=== PATIENT | female | born 1965 | race Two or more races ===

== ENCOUNTER 2020-05-28 22:31 | Inpatient (IN) | payer SELFPAY ==
[~2020-05-28] VITALS: Ht 167.6 cm; Wt 65.6 kg
[2020-05-29] MEDS ORDERED: DexAMETHasone SOD PHOS 10MG/1ML VIAL INJ IV ONE (02:00)
[2020-05-29] MEDS ORDERED: levoFLOXacin 750MG 150 ML IV ONE (02:15)
[2020-05-29 02:39] LABS: Basophils # (auto) 0 10 ^3/uL (0-0.2); Basophils % (auto) 0.2 % (0.0-2.0); Eosinophils # (auto) 0 10 ^3/uL (0-0.8); Eosinophils % (auto) 0.8 % (0.0-7.0); Hematocrit 39.5 % (36.0-46.0); Hemoglobin 13.2 g/dL (12.2-16.2); Lymphocytes # (auto) 0.5 10 ^3/uL (0.4-5.4); Lymphocytes % (auto) 7.2 % (10.0-50.0); Mean Corpuscular Hemoglobin 29.2 pg (28.0-32.0); Mean Corpuscular Hgb Conc. 33.5 g/dL (32.0-36.0); Mean Corpuscular Volume 87.2 fL (80.0-100.0); Monocytes # (auto) 0.7 10 ^3/uL (0-1.3); Monocytes % (auto) 10.6 % (0.0-12.0); Neutrophils # (auto) 5.2 10 ^3/uL (1.6-8.6); Neutrophils % (auto) 81.2 % (37.0-80.0); Platelet Count (auto) 311 10^3/uL (140-450); Red Blood Cells 4.53 10^6/uL (4.0-5.20); Red Cell Distribution Width 13.3 % (11.8-14.3); White Blood Cell 6.4 10^3/uL (4.4-10.8)
[2020-05-29 03:02] LABS: Alanine Aminotransferase 20 U/L (13-56); Albumin 2.4 g/dL (3.4-5.0); Anion Gap 10 (5-15); Aspartate Aminotransferase 30 U/L (15-37); BUN/Creatinine Ratio 22.2; Blood Urea Nitrogen 10 mg/dL (7-18); Calcium 7.9 mg/dL (8.5-10.1); Carbon Dioxide 25 mmol/L (21-32); Chloride 98 mmol/L (98-107); GFR African American 187 mL/min; GFR Non-African American 155 mL/min; Glucose 108 mg/dL (74-106); Magnesium 2.5 mg/dL (1.6-2.6); Potassium 3.3 mmol/L (3.5-5.1); Sodium 133 mmol/L (136-145)
[2020-05-29 03:12] LABS: INR 1.08 (0.9-1.15); Partial Thromboplastin Time 27.3 sec (23.0-31.2)
[2020-05-29 03:14] LABS: Alkaline Phosphatase 58 U/L (45-117); Bilirubin, Total 0.6 mg/dL (0.2-1.0); Lactate Dehydrogenase 412 U/L (84-246); Total Protein 7.4 g/dL (6.4-8.2)
[2020-05-29] MEDS ORDERED: IOHEXOL 350 MG/ML 100ML IJ ONE (07:32)
[2020-05-29] MEDS ORDERED: ACETAMINOPHEN 325 MG TAB PO PRN (21:00)
[2020-05-29] MEDS ORDERED: NITROGLYCERIN 0.4 MG SL TAB SL PRN (21:00)
[2020-05-29] MEDS ORDERED: MORPHINE SULF INJ 2 MG/ML SYRINGE 1ML IV PRN (21:00)
[2020-05-29] MEDS ORDERED: ONDANSETRON HCL 4 MG/2 ML VIAL IV PRN (21:00)
[2020-05-29] MEDS ORDERED: TEMAZEPAM 15 MG CAP PO PRN (21:00)
[2020-05-29] MEDS: ALBUTEROL SULF HFA 90MCG INH 200DOSE IN SCH (22:00)
[2020-05-29] MEDS: FAMOTIDINE 20 MG TAB PO SCH (23:19)
[2020-05-29] MEDS: DOXYCYCLINE 100MG/250ML 250 ML IV SCH (23:19)
[2020-05-29] MEDS: ASCORBIC ACID 500 MG TAB PO SCH (23:19)
[2020-05-30] VITALS: BP 121/79
[2020-05-30 05:40] LABS: Basophils # (auto) 0 10 ^3/uL (0-0.2); Basophils % (auto) 0.1 % (0.0-2.0); Eosinophils # (auto) 0 10 ^3/uL (0-0.8); Hemoglobin 13.6 g/dL (12.2-16.2); Lymphocytes # (auto) 0.3 10 ^3/uL (0.4-5.4); Lymphocytes % (auto) 5.7 % (10.0-50.0); Mean Corpuscular Hemoglobin 29.6 pg (28.0-32.0); Mean Corpuscular Hgb Conc. 33.9 g/dL (32.0-36.0); Mean Corpuscular Volume 87.2 fL (80.0-100.0); Monocytes # (auto) 0.9 10 ^3/uL (0-1.3); Monocytes % (auto) 15.4 % (0.0-12.0); Neutrophils # (auto) 4.5 10 ^3/uL (1.6-8.6); Neutrophils % (auto) 78.8 % (37.0-80.0); Nucleated Red Blood Cells % 0.1 %; Platelet Count (auto) 446 10^3/uL (140-450); Red Blood Cells 4.58 10^6/uL (4.0-5.20); Red Cell Distribution Width 13.6 % (11.8-14.3); White Blood Cell 5.7 10^3/uL (4.4-10.8)
[2020-05-30 05:54] LABS: Potassium 3.4 mmol/L (3.5-5.1)
[2020-05-30] MEDS: ALBUTEROL SULF HFA 90MCG INH 200DOSE IN SCH ×3 (06:00→21:41)
[2020-05-30 06:06] LABS: Albumin 2.4 g/dL (3.4-5.0); BUN/Creatinine Ratio 43.2; Bilirubin, Total 0.5 mg/dL (0.2-1.0); Calcium 8.2 mg/dL (8.5-10.1); Total Protein 7.2 g/dL (6.4-8.2)
--- NOTE | 2020-05-30 07:24 | NUR ---
Respiratory note: PT SEEN, PT RESTING AT THIS TIME NO RESP DISTRESS NOTED. HR 81, RR 26, SPO2 97% ON 4L N/C. TITRATED FIO2 TO 2L. PT MAINTAINED SPO2. NO MDI'S AT BEDSIDE. WILL CALL PHARMACY
[2020-05-30] MEDS ORDERED: ZINC SULFATE 220mg CAP or TAB PO SCH (10:00)
[2020-05-30] MEDS: ASCORBIC ACID 1,000 MG TAB PO SCH (10:39)
[2020-05-30] MEDS: ENOXAPARIN SOD 40 MG/0.4 ML SYRINGE SC SCH (10:39)
[2020-05-30] MEDS: ASCORBIC ACID 500 MG TAB PO SCH (10:39)
[2020-05-30] MEDS: CHOLECALCIFEROL (VITD3) 2,000 UNIT CAP PO SCH (10:39)
[2020-05-30] MEDS: FAMOTIDINE 20 MG TAB PO SCH ×2 (10:39→21:54)
[2020-05-30] MEDS: DexAMETHasone SOD PHOS 10MG/1ML VIAL INJ IV SCH (10:40)
[2020-05-30] MEDS: ZINC SULFATE 220mg CAP or TAB PO SCH (10:40)
[2020-05-30] MEDS: DOXYCYCLINE 100MG/250ML 250 ML IV SCH ×2 (10:40→21:53)
--- NOTE | 2020-05-30 11:30 | NUR ---
Called ER Called Er regarding patient. Admit packet received but notified that patient has not been transferred to tele unit. central office technician to call back.
[2020-05-30] MEDS ORDERED: POTASSIUM CHL 20 Meq TABLET PO ONE (15:30)
[2020-05-30] MEDS ORDERED: FUROSEMIDE 20 MG/2 ML VIAL IV ONE (15:30)
[2020-05-30] MEDS ORDERED: cefTRIAXone 1GM/50ML D5W 50 ML IV ONE (15:30)
[2020-05-30] MEDS ORDERED: guaiFENesin-DM 100/10mg/5ml SYR PO PRN (15:30)
[2020-05-30] MEDS ORDERED: REMDESIVIR PER PHARMACY IV SCH (17:00)
[2020-05-30] MEDS: BUDESONIDE (INHALATION) 180 MCG IH IN SCH (22:00)
--- NOTE | 2020-05-31 00:20 | NUR ---
Patient Arrived Patient arrived to unit from ER. Patient currently shows no signs of distress. Patient AOx4, on 4L nasal cannula. Safety precautions in place. Patient oriented to room, call light and RN. IS at bedside. Patient currently returns demonstration only 500 marker. Patient encouraged to continue use while awake. Bed locked and in lowest position. Will continue to monitor q1hr and PRN. Call light within reach.
[2020-05-31 00:30] VITALS: BP 119/69
--- NOTE | 2020-05-31 01:15 | NUR ---
Nasal Cannula Patient given new nasal cannula. O2 at 4L at this time.
--- NOTE | 2020-05-31 01:30 | NUR ---
UA sent Urine sample obtained and sent to lab per orders.
[2020-05-31 01:39] LABS: Urine Bacteria FEW /hpf (None Seen); Urine Blood Negative /uL (Negative); Urine Mucus FEW (None Seen); Urine Specific Gravity 1.021 (1.001-1.035); Urine WBC 2 /hpf (0 - 5)
--- NOTE | 2020-05-31 03:00 | NUR ---
ASSUMED CARE. RECEIVED REPORT FROM GUERDA RODRIGUEZ. PATIENT RESTING IN BED , NO DISTRESS NOTED. WILL CONTINUE TO MONITOR.
[2020-05-31 05:00] VITALS: BP 95/67
[2020-05-31] MEDS: ALBUTEROL SULF HFA 90MCG INH 200DOSE IN SCH ×2 (06:16→19:48)
[2020-05-31] MEDS: BUDESONIDE (INHALATION) 180 MCG IH IN SCH ×3 (06:16→19:53)
[2020-05-31 08:46] VITALS: BP 102/66
[2020-05-31 08:59] LABS: BUN/Creatinine Ratio 43.5; Calcium 8.2 mg/dL (8.5-10.1); Potassium 3.6 mmol/L (3.5-5.1)
[2020-05-31] MEDS: ENOXAPARIN SOD 40 MG/0.4 ML SYRINGE SC SCH (10:32)
[2020-05-31] MEDS: cefTRIAXone 1GM/50ML D5W 50 ML IV SCH (10:32)
[2020-05-31] MEDS: FUROSEMIDE 20 MG/2 ML VIAL IV SCH (10:32)
[2020-05-31] MEDS: ZINC SULFATE 220mg CAP or TAB PO SCH (10:33)
[2020-05-31] MEDS: ASCORBIC ACID 1,000 MG TAB PO SCH (10:33)
[2020-05-31] MEDS: DOXYCYCLINE 100MG/250ML 250 ML IV SCH ×2 (10:33→21:40)
[2020-05-31] MEDS: FAMOTIDINE 20 MG TAB PO SCH ×2 (10:39→21:40)
[2020-05-31] MEDS: POTASSIUM CHL 20 Meq TABLET PO SCH (10:39)
[2020-05-31] MEDS: DexAMETHasone SOD PHOS 10MG/1ML VIAL INJ IV SCH (10:40)
[2020-05-31] MEDS: CHOLECALCIFEROL (VITD3) 2,000 UNIT CAP PO SCH (10:40)
--- NOTE | 2020-05-31 11:40 | NUR ---
Assessment Patient is a 55 year old female, patient is alert and oriented. Patient cognitive abilities are intact. Patient stated prior to admission she could do all ADL's and ambulate independently. Patient stated that she is employed and she lives with her children. Patient stated that she will return home post discharge, and her children will provide transportation post discharge. Patient states that her children are her support system. Patient is receptive to Advance Directives forms. Discharge Planning: Patient will return home post discharge, patient will follow up with PCP post discharge. There are no other post discharge needs to address at the moment. Addendum: 05/31/20 at 1149 by MOLLY GIL Amended: Links added.
[2020-05-31 12:32] VITALS: BP 114/72
--- NOTE | 2020-05-31 12:38 | NUR ---
Nutrition Assessment/consult Note please see attached link for complete assessment Est energy needs BW [id number] kcal (25-30 kcal/kg BW) Est protein needs 65-78g (1-1.2g/kg BW) Will monitor and reassess prn. Addendum: 05/31/20 at [address] Amended: Links added.
--- NOTE | 2020-05-31 14:00 | NUR ---
DOCTOR TREVON AT BEDSIDE.
--- NOTE | 2020-05-31 15:55 | NUR ---
CONSENTS SPOKE WITH PATIENT AND PATIENT'S SON BY VIDEO CHAT AT LENGTH ABOUT RECEIVING CONVALESCENT PLASMA AND REMDESIVIR. AT THIS TIME, THE PATIENT AND HER SON WOULD LIKE SOME TIME TO DO SOME RESEARCH ON BOTH MEDICATIONS. CONSENTS REMAIN UNSIGNED AND IN PATIENT'S CHART. WILL FOLLOW UP.
[2020-05-31 17:00] VITALS: BP 105/68
--- NOTE | 2020-05-31 19:36 | NUR ---
Opening Shift Note Assumed care of patient after receiving report from GUERDA Sarmiento. Patient is awake and alert with no S/S of pain or distress. Bed in lowest locked position x2 side rails up for safety, HOB semi fowlers, patient on NC. Instructed on POC and to call for assist PRN, will continue to monitor for changes Q1hr and PRN.
--- NOTE | 2020-05-31 20:00 | NUR ---
Patient educated Patient educated regarding need for continuous telemetry monitoring. Patient had removed tele box and stated it was "heavy when walking". Patient placed back on telemetry monitoring and educated not to remove tele box. Patient verbalized understanding.
[2020-05-31 22:57] VITALS: BP 97/56
[2020-06-01] VITALS (9 sets, daily range): BP systolic 88–129; BP diastolic 63–74
[2020-06-01] MEDS: ALBUTEROL SULF HFA 90MCG INH 200DOSE IN SCH (06:01)
[2020-06-01] MEDS: BUDESONIDE (INHALATION) 180 MCG IH IN SCH ×2 (06:02→19:23)
--- NOTE | 2020-06-01 07:30 | NUR ---
RECEIVED REPORT FROM NIGHT NURSE. PATIENT RESTING IN BED, NO DISTRESS NOTED. WILL CONTINUE TO MONITOR.
--- NOTE | 2020-06-01 09:30 | NUR ---
CONSENTS FOR CONVALESCENT PLASMA AND REMDESIVIR SIGNED AND PLACED IN CHART.
[2020-06-01] MEDS: cefTRIAXone 1GM/50ML D5W 50 ML IV SCH (12:42)
[2020-06-01] MEDS: DexAMETHasone SOD PHOS 10MG/1ML VIAL INJ IV SCH (12:56)
[2020-06-01] MEDS: FUROSEMIDE 20 MG/2 ML VIAL IV SCH (13:00)
[2020-06-01] MEDS: POTASSIUM CHL 20 Meq TABLET PO SCH (13:00)
[2020-06-01] MEDS: ENOXAPARIN SOD 40 MG/0.4 ML SYRINGE SC SCH (13:02)
[2020-06-01] MEDS: FAMOTIDINE 20 MG TAB PO SCH ×2 (13:04→23:06)
[2020-06-01] MEDS: ASCORBIC ACID 1,000 MG TAB PO SCH (13:04)
[2020-06-01] MEDS: ZINC SULFATE 220mg CAP or TAB PO SCH (13:04)
[2020-06-01] MEDS: CHOLECALCIFEROL (VITD3) 2,000 UNIT CAP PO SCH (13:04)
[2020-06-01] MEDS: DOXYCYCLINE 100MG/250ML 250 ML IV SCH ×2 (14:15→23:06)
[2020-06-01] MEDS ORDERED: REMDESIVIR 200 MG in NS 210ml LOADING DOSE ADULT IV ONE (17:00)
--- NOTE | 2020-06-01 17:56 | NUR ---
CONVALESCENT PLASMA CONVALESCENT PLASMA INITIATED. PLEASE SEE BLOOD PRODUCT FLOW SHEET.
--- NOTE | 2020-06-01 19:13 | NUR ---
PLASMA INFUSION INITIATED THIS SHIFT WITH PATIENT CONSENT. INITIATED TO NIGHT NURSE. VS STABLE. PT TOLERATING WELL
[2020-06-01] MEDS: ALBUTEROL SULF HFA 90MCG INH 200DOSE IN PRN (19:23)
--- NOTE | 2020-06-01 20:23 | NUR ---
Plasma infusion complete. Vitals: BP 108/70, Temp 97.4, HR 74, RR 18, O2 96%. No adverse reactions noted, patient tolerated well. Will continue to monitor.
--- NOTE | 2020-06-01 21:48 | NUR ---
Remdesivir infusion started Started Remdesivir per MD order at this time. Patient tolerating well at this time. Will continue to monitor.
[2020-06-02 06:30] LABS: Hematocrit 35.4 % (36.0-46.0); Hemoglobin 11.7 g/dL (12.2-16.2); Mean Corpuscular Hemoglobin 28.8 pg (28.0-32.0); Mean Corpuscular Hgb Conc. 33.1 g/dL (32.0-36.0); Mean Corpuscular Volume 87.1 fL (80.0-100.0); Platelet Count (auto) 490 10^3/uL (140-450); Red Blood Cells 4.07 10^6/uL (4.0-5.20); Red Cell Distribution Width 13.5 % (11.8-14.3); White Blood Cell 5.7 10^3/uL (4.4-10.8)
[2020-06-02] MEDS: BUDESONIDE (INHALATION) 180 MCG IH IN SCH ×2 (06:30→22:42)
[2020-06-02] MEDS: ALBUTEROL SULF HFA 90MCG INH 200DOSE IN PRN (06:30)
[2020-06-02 06:32] LABS: Potassium 3.5 mmol/L (3.5-5.1)
[2020-06-02 06:43] LABS: Albumin 2.4 g/dL (3.4-5.0); BUN/Creatinine Ratio 20.8; Bilirubin, Total 0.3 mg/dL (0.2-1.0); CRP High Sensitivity 1.66 mg/dL (< 0.3); Total Protein 6.5 g/dL (6.4-8.2)
[2020-06-02 06:55] VITALS: BP 135/83
[2020-06-02 07:08] LABS: Band Neutrophils % (manual) 0; Basophils % (manual) 0 (0.0-2.0); Blast Cells 0; Metamyelocytes % 0; Promyelocytes % 0; Reactive Lymphocytes 0
[2020-06-02 07:53] LABS: Eosinophils % (manual) 1 (0-7); Lymphocytes % (manual) 27 (10.0-50.0); Monocytes % (manual) 7 (0-12); Myelocytes % 5
[2020-06-02 08:09] VITALS: BP 105/61
[2020-06-02] MEDS: cefTRIAXone 1GM/50ML D5W 50 ML IV SCH (08:54)
[2020-06-02] MEDS: CHOLECALCIFEROL (VITD3) 2,000 UNIT CAP PO SCH (09:08)
[2020-06-02] MEDS: POTASSIUM CHL 20 Meq TABLET PO SCH (09:08)
[2020-06-02] MEDS: ZINC SULFATE 220mg CAP or TAB PO SCH (09:08)
[2020-06-02] MEDS: ASCORBIC ACID 1,000 MG TAB PO SCH (09:08)
[2020-06-02] MEDS: FAMOTIDINE 20 MG TAB PO SCH ×2 (09:08→22:26)
[2020-06-02] MEDS: FUROSEMIDE 20 MG/2 ML VIAL IV SCH (09:21)
--- NOTE | 2020-06-02 09:21 | NUR ---
LASIX 20MG HELD R/T SBP 105 AND CONTINUES [address] THERAPY. DR LESTER NOTIFIED VERBALLY
[2020-06-02] MEDS: DexAMETHasone SOD PHOS 10MG/1ML VIAL INJ IV SCH (09:36)
[2020-06-02] MEDS: ENOXAPARIN SOD 40 MG/0.4 ML SYRINGE SC SCH (09:36)
[2020-06-02] MEDS: DOXYCYCLINE 100MG/250ML 250 ML IV SCH ×2 (09:51→22:26)
[2020-06-02 12:30] VITALS: BP 103/60
[2020-06-02 17:00] VITALS: BP 105/67
[2020-06-02] MEDS ORDERED: REMDESIVIR 100 MG in SODIUM CHL 0.9% 250 ML IV SCH (17:00)
--- NOTE | 2020-06-02 17:45 | NUR ---
Started Remdesivir per MD order at this time. Patient tolerating well at this time. Will continue to monitor.
[2020-06-02 18:00] VITALS: BP 115/71
--- NOTE | 2020-06-02 20:00 | NUR ---
Remdesivir infusion finished, line flushed with 30 ml NS. Patient tolerated intervention well. No s/s of distress. Vitals documented. Will continue to monitor.
[2020-06-02 22:11] VITALS: BP 103/68
[2020-06-03] MEDS: ALBUTEROL SULF HFA 90MCG INH 200DOSE IN PRN (00:59)
[2020-06-03 04:58] VITALS: BP 131/84
[2020-06-03 08:00] VITALS: BP 120/72
[2020-06-03] MEDS: cefTRIAXone 1GM/50ML D5W 50 ML IV SCH (08:32)
--- NOTE | 2020-06-03 08:41 | NUR ---
PATIENT DOING WELL ON ROOM AIR; REPORTING IMPROVED STRENGTH OVERALL; UP EATING MEAL. DR LESTER NOTIFIED, D/C PLANNING TODAY
[2020-06-03] MEDS: DexAMETHasone SOD PHOS 10MG/1ML VIAL INJ IV SCH (11:55)
[2020-06-03] MEDS: POTASSIUM CHL 20 Meq TABLET PO SCH (11:57)
[2020-06-03] MEDS: ASCORBIC ACID 1,000 MG TAB PO SCH (11:57)
[2020-06-03] MEDS: FAMOTIDINE 20 MG TAB PO SCH (11:57)
[2020-06-03] MEDS: ZINC SULFATE 220mg CAP or TAB PO SCH (11:57)
[2020-06-03] MEDS: ENOXAPARIN SOD 40 MG/0.4 ML SYRINGE SC SCH (11:57)
[2020-06-03] MEDS: CHOLECALCIFEROL (VITD3) 2,000 UNIT CAP PO SCH (11:58)
[2020-06-03 12:00] VITALS: BP 115/72
[2020-06-03] MEDS: DOXYCYCLINE 100MG/250ML 250 ML IV SCH (12:01)
--- NOTE | 2020-06-03 12:46 | NUR ---
Nutrition Followup Note Wt 65.6kg Pt is covid in covid isolation. Pt is doing well and on room air per RN note. Pt is appetite is fair aeb pt is with a regular diet with a 70% avg po intake per Rn note Est energy needs BW [id number] kcal (25-30 kcal/kg BW) Est protein needs 65-78g (1-1.2g/kg BW) Will monitor and reassess prn. Labs: Creat 0.48L, Ca 8.0L, Alb 2.4L BM: pt with 1 BM / per Rn note Skin: BS 20 low risk, full details in personal carer note PES Altered nutrition related lab values r.t current chronic medical condition aeb elev BUN mod hypoalb hypocalcemia Comments 1) consider low lactose diet if diarr persists 2) continue current plan of care Expected Outcomes/Goals: pt will have improved labs F/u mod 3-5 days
[2020-06-03 14:24] VITALS: BP 115/72
--- NOTE | 2020-06-03 15:59 | NUR ---
Discharge processed; patient calmly awaiting family member to arrive. IV discontinued. Tele to ICU. Pt received CXR f/u direction and DC clinic direction; patient education completed and voices understanding.
== END 2020-06-03 15:30 | disposition home or self-care (01) | DRG 177 ==
LOC: ER 22:35 → TELE 22:36 → TELE-EAST 05-30 23:44 → EAST 05-31 00:17
PROVIDERS: ADMIT Nurse Practitioner; ATTEND Internal Medicine
PROC: XW033E5 Introduction of Remdesivir Anti-infective into Peripheral Vein, Percutaneous Approach, New Technology Group 5 (ICD-10-PCS; principal; 2020-06-01)
PROC: XW13325 Transfusion of Convalescent Plasma (Nonautologous) into Peripheral Vein, Percutaneous Approach, New Technology Group 5 (ICD-10-PCS; 2020-06-01)
DX: U07.1 COVID-19 (principal); J12.89 Other viral pneumonia; E43 Unspecified severe protein-calorie malnutrition; J96.01 Acute respiratory failure with hypoxia; E87.1 Hypo-osmolality and hyponatremia; E87.6 Hypokalemia
CPT/HCPCS: 36415; 71045; 71275; 80048; 80053; 81001; 82728; 83605; 83615; 83735; 83880; 84443; 84484; 85007; 85025; 85027; 85379; 85610; 85730; 86141; 86850; 86900; 86901; 87426; 93005; 94640; 96365; 96375; 99291; G0378; J0696; J1100; J1956; J3490